=== PATIENT | male | born 1955 | race Caucasian/White ===

== ENCOUNTER 2018-11-05 10:11 | Inpatient (IN) | payer OTHER ==
[~2018-11-05] VITALS: Ht 170.2 cm; Wt 76.5 kg
[~2018-11-05 10:11] MED LIST: ARTHRITIS PAIN650 MG PO; CYCL10 PO; Catapres0.1 MG PO; GABA100 PO; Hair, Skin & N1 EACH PO; METH5 PO; NAPR500 PO; OXYC40ER PO; OXYC5 PO; TRAZ100 PO; Vistaril50 MG PO; Zofran Odt8 MG SL
--- NOTE | 2018-11-06 06:49 | NUR ---
History, Chart, Medications and Allergies reviewed before start of procedure. Patient confirms NPO status and agrees with scheduled surgery. Lungs clear T/O to Auscultation. Pre-Op teaching done. Pt verbalizes understanding. Patient reports completing Chlorhexadine shower X2 prior to admission to hospital. PATIENT NOT WEARING ANY JEWELRY OR GLASSES AT TIME OF ADMIT. PATIENT TOOK HIS DENTURE OUT AND PLACED THEM IN HIS BELONGINGS.
--- NOTE | 2018-11-06 07:01 | NUR ---
NOZIN SWABS COMPLETED PREOPERATIVELY.
--- NOTE | 2018-11-06 07:07 | NUR ---
PATIENT UP FOR UNMEASURED VOID.
--- NOTE | 2018-11-06 07:21 | NUR ---
CIRCUS ARTIST BY TO REVIEW CHART.
--- NOTE | 2018-11-06 11:47 | NUR ---
PT ARRIVED TO THE ROOM AT 1105. PT ALERT AND ORIENTED UPON ARRIVAL TO THE ROOM. PT RATES PAIN AT 7/10 AND REPORTS A BURNING SENSATION. PT MEDICATED WITH OXYCODONE. DENIES NAUSEA. TOLERATING PO AT THIS TIME. WILL CONTINUE TO MONITOR.
--- NOTE | 2018-11-06 12:15 | NUR ---
PT HAD PAIN MANAGEMENT ISSUES 3 YEARS AGO. HE HAS NOT HAD ANY SUICIDAL THOUGHTS OR ATTEMPTS SINCE.
--- NOTE | 2018-11-06 17:58 | NUR ---
SHIFT SUMMARY POST-OP PAIN WAS INITIALLY DIFFICULT TO CONTROL AND REQUIRED ONE DOSE OF IV PAIN MEDICATION. SINCE THAT DOSE PT'S PAIN HAS BEEN MANAGED WITH OXYCODONE. PT HAS AMBULATED WELL IN THE HAL[place]. HE IS TOLERATING A REGULAR DIET. VSS. WILL MONITOR UNTIL REPORT TO ONCOMING RN.
[2018-11-07 04:25] LABS: BASOPHILS ABSOLUTE AUTO 0.02 K/mm3 (0.00-0.23); BASOPHILS PERCENT AUTO 0 % (0-2); EOSINOPHILS ABSOLUTE AUTO 0.14 K/mm3 (0.00-0.68); EOSINOPHILS PERCENT AUTO 1 % (0-6); Hematocrit 36.4 % (37.0-53.0); Hemoglobin 12.1 g/dL (13.5-17.5); IMMATURE GRAN ABSOLUTE AUTO 0.05 K/mm3 (0.00-0.10); IMMATURE GRAN PERCENT AUTO 0 % (0-1); LYMPHOCYTES ABSOLUTE AUTO 2.48 K/mm3 (0.84-5.20); LYMPHOCYTES PERCENT AUTO 18 % (21-46); MONOCYTES ABSOLUTE AUTO 1.08 K/mm3 (0.16-1.47); MONOCYTES PERCENT AUTO 8 % (4-13); Mean Corpuscular HGB 30.3 pg (26.0-34.0); Mean Corpuscular HGB Conc 33.2 g/dL (31.5-36.5); Mean Corpuscular Volume 91 fL (80-100); Mean Platelet Volume 9.5 fL (9.1-12.4); NEUTROPHILS ABSOLUTE AUTO 9.82 K/mm3 (1.96-9.15); NEUTROPHILS PERCENT AUTO 72 % (41-73); Platelet Count 182 K/mm3 (150-400); RDW Coefficient Variation 14.8 % (11.7-14.2); RDW Standard Deviation 50.3 fL (35.1-46.3); White Blood Cell Count 13.59 K/mm3 (4.00-11.30)
[2018-11-07 04:41] LABS: Anion Gap 7 mmol/L (6-16); Blood Urea Nitrogen 21 mg/dL (8-24); Bun/Creatinine Ratio 19.4 (12.0-20.0); CO2, Blood 30 mmol/L (21-32); Chloride, Blood 106 mmol/L (98-108); Creatinine, Blood 1.08 mg/dL (0.60-1.20); Glomerular Filtration Rate >60 (60-); Glucose, Blood 111 mg/dL (70-99); Potassium, Blood 4.3 mmol/L (3.5-5.5); Sodium, Blood 143 mmol/L (136-145)
--- NOTE | 2018-11-07 06:23 | NUR ---
POD 1 S/P R ELVIRA. PT VSS T/O NIGHT, DRESSING CDI. PAIN MGD W/PO PAIN MEDS W/REP RELIEF. PT KIMBERLY REG PO, NO C/O N/V, IS VOIDING URINE W/O DIFFICULTY. CIRC CHECKS WNL. PT UP OOB W/FWW+SBA, KIMBERLY WELL, IS MAINTAINING HIP PRECAUTIONS. PT USING CALL LIGHT FOR ASSISTANCE, WILL CONT TO MONITOR UNTIL REP GIVEN TO ONCOMING RN.
[2018-11-07] MEDS ORDERED: CELE200 PO (09:08)
[2018-11-07] MEDS ORDERED: Percocet 5-3251 EACH PO (09:09)
[2018-11-07] MEDS ORDERED: Aspir 8181 MG PO (09:10)
--- NOTE | 2018-11-07 10:34 | NUR ---
DISCHARGE PT PROVIDED WITH WRITTEN AND VERBAL DISCHARGE INSTRUCTIONS. PT REPORTED UNDERSTANDING INSTRUCTIONS AFTER QUESTIONS WERE ANSWERED. DRESSINGS AND PRESCRIPTIONS PROVIDED. PT ALERT AND ORIENTED AT TIME OF DISCHARGE. PT REPORTED PAIN MANAGED. PT ESCORTED OUT IN W/C BY MILAD HOWARD.
--- NOTE | 2018-11-12 09:07 | NUR ---
11/12/18 0907 Tariq Serna EDIT DRESSING
== END 2018-11-07 10:34 | disposition home or self-care (01) | DRG 470 ==
LOC: SURS 11-06 06:04 → PRE IP 11-06 07:30 → SURS 11-06 11:05
PROVIDERS: ADMIT Orthopaedic Surgery
PROC: 0SR904A Replacement of Right Hip Joint with Ceramic on Polyethylene Synthetic Substitute, Uncemented, Open Approach (ICD-10-PCS; principal; 2018-11-06 07:30)
DX: M16.11 Unilateral primary osteoarthritis, right hip (principal); J44.9 Chronic obstructive pulmonary disease, unspecified
CPT/HCPCS: 36415; 72170; 80048; 85025; 86850; 86900; 86901; 88300; 97110; 97116; 97162; 97530; C1776; J0690; J1100; J1170; J1885; J2250; J2370; J2405; J2704; J3010; J7120